=== PATIENT | female | born 1940 | race Caucasian/White ===

== ENCOUNTER 2024-02-27 10:26 | Outpatient (CLI) | payer OTHER, MEDICARE | END 2024-02-27 18:50 | disposition home or self-care (01) | LOC: SCT 10:26 | PROVIDERS: ATTEND Orthopaedic Surgery Sports Medicine | DX: M17.12 Unilateral primary osteoarthritis, left knee (principal) ==

== ENCOUNTER 2024-03-05 05:06 | Inpatient (IN) | payer OTHER ==
[2024-02-28 12:59] LABS: BASOPHILS # (AUTO) 0.1 K/uL (0.0-0.2); BASOPHILS % (AUTO) 0.7 % (0.0-2.0); EOSINOPHILS # (AUTO) 0.3 K/uL (0.0-0.4); EOSINOPHILS % (AUTO) 3.4 % (0.0-4.0); HEMATOCRIT 38.9 % (36-48); LYMPHOCYTES # (AUTO) 1.9 K/uL (1.0-5.5); LYMPHOCYTES % (AUTO) 20.8 % (20.5-51.5); MEAN CORPUSCULAR HEMOGLOBIN 30 pg (27-31); MEAN CORPUSCULAR HGB CONC 33 % (32-36); MEAN CORPUSCULAR VOLUME 89 fL (79.0-98.0); MONOCYTES # (AUTO) 0.8 K/uL (0.0-1.0); MONOCYTES % (AUTO) 8.4 % (1.7-9.3); NEUTROPHILS # (AUTO) 6.1 K/uL (1.8-7.7); NEUTROPHILS % (AUTO) 66.7 % (40.0-70.0); PLATELET COUNT (AUTO) 484 K/uL (130-430); RED BLOOD CELL COUNT(AUTO) 4.39 MIL/uL (4.2-6.2); RED CELL DISTRIBUTION WIDTH 15.7 % (9.0-15.0); WHITE BLOOD COUNT (AUTO) 9.2 K/uL (4.8-10.8)
[2024-02-28 13:15] LABS: PROTHROMBIN TIME 10.2 SECS (9.5-12.5)
[2024-02-28 13:16] LABS: ALANINE AMINOTRANSFERASE 20 U/L (12-78); ALBUMIN 3.4 g/dL (3.4-4.8); ANION GAP 11 (5-15); ASPARTATE AMINOTRANSFERASE 15 U/L (10-37); CALCIUM 8.9 mg/dL (8.4-11.0); CARBON DIOXIDE 26 mmol/L (23-29); CHLORIDE 106 mmol/L (98-107); CREATININE 0.98 mg/dL (0.55-1.30); GLUCOSE 90 mg/dL (74-106); POTASSIUM 3.6 mmol/L (3.5-5.1); SODIUM SERUM 143 mmol/L (136-145); TOTAL BILIRUBIN 0.3 mg/dL (0.0-1.0); TOTAL PROTEIN, SERUM 6.6 g/dL (6.4-8.3); UREA NITROGEN, BLOOD 28 mg/dL (8-21)
[2024-02-28 15:57] LABS: HEMOGLOBIN A1C 5.18 % (<5.7)
[~2024-03-05] VITALS: Ht 152.4 cm; Wt 66.8 kg
[2024-03-05] MEDS: ACETAMINOPHEN 325 MG TABLET ONE (05:25)
[2024-03-05] MEDS: GABAPENTIN 300 MG CAPSULE ONE (05:27)
[2024-03-05] MEDS: ACETAMINOPHEN 500 MG TABLET PO ONE (06:04)
[2024-03-05] MEDS: GABAPENTIN 300 MG CAPSULE PO ONE (06:04)
[2024-03-05] MEDS ORDERED: KETOROLAC TROMETHAMINE 30 MG VIAL ONE (07:00)
[2024-03-05] MEDS ORDERED: TRANEXAMIC ACID 1,000 MG/10 ML VIAL ONE (07:00)
[2024-03-05] MEDS ORDERED: ROCURONIUM BROMIDE 10 MG/ML (ZEMURON) ONE (07:00)
[2024-03-05] MEDS ORDERED: MIDAZOLAM HCL 2 MG/2 ML VIAL (VERSED) ONE (07:00)
[2024-03-05] MEDS ORDERED: DEXAMETHASONE SOD PHOSPHATE 4 MG/ML VIAL ONE (07:00)
[2024-03-05] MEDS ORDERED: PROPOFOL 200MG/ 20ML VIAL (DIPRIVAN) IV ONE (07:00)
[2024-03-05] MEDS ORDERED: BUPIVACAINE /PF 0.25% 30 ML VIAL INJ ONE (07:00)
[2024-03-05] MEDS ORDERED: NS IRRIG SOLN 1000 ML IR ONE (07:00)
[2024-03-05] MEDS ORDERED: WATER FOR IRRIGATION,STERILE 1,000 ML IRRIG.SOLN IR ONE (07:00)
[2024-03-05] MEDS ORDERED: LR 1,000 ML IV.SOLN IV ONE (07:00)
[2024-03-05] MEDS ORDERED: DESFLURANE 15 MIN GAS INH ONE (07:00)
[2024-03-05] MEDS ORDERED: VANCOMYCIN HCL 1000 MG/VIAL IV ONE (07:00)
[2024-03-05] MEDS ORDERED: SUGAMMADEX SODIUM 200 MG/2 ML VIAL IV ONE (07:00)
[2024-03-05] MEDS ORDERED: ONDANSETRON HCL 4 MG/2 ML VIAL ONE (07:00)
[2024-03-05] MEDS ORDERED: fentaNYL CITRATE/PF 100 MCG/2 ML AMP ONE (07:00)
[2024-03-05] MEDS: CEFAZOLIN SOD 2 GM in D5W 50 ML IV ONE (07:00)
[2024-03-05] MEDS ORDERED: ONDANSETRON HCL 4 MG/2 ML VIAL IVP PRN ×2 (08:00→14:00)
[2024-03-05] MEDS ORDERED: HYDROmorphone 1 MG/ML INJ. CARTRIDGE IVP PRN ×4 (08:00→14:00)
[2024-03-05] MEDS ORDERED: hydrALAZINE HCL 20 MG/ML VIAL IVP PRN (08:00)
[2024-03-05] MEDS ORDERED: LABETALOL 100 MG/ 20ML VIAL IVP PRN (08:00)
[2024-03-05] MEDS ORDERED: MEPERIDINE HCL/PF 25 MG/ML DISP.SYRIN IVP PRN (08:00)
[2024-03-05] MEDS: HYDROmorphone 1 MG/ML INJ. CARTRIDGE IVP PRN (09:40)
[2024-03-05] MEDS: HYDROmorphone 1 MG/ML INJ. CARTRIDGE ONE (09:42)
[2024-03-05] MEDS ORDERED: LORATADINE 10 MG TABLET PO PRN (11:00)
[2024-03-05] MEDS ORDERED: BISACODYL 10 MG/SUPPOSITORY RC PRN (11:00)
[2024-03-05] MEDS ORDERED: LACTULOSE 20 GM/30 ML UDC PO PRN (11:00)
[2024-03-05] MEDS ORDERED: DIPHENHYDRAMINE HCL 25 MG CAPSULE PO PRN (11:00)
[2024-03-05] MEDS ORDERED: MULT-1089 PO (11:42)
[2024-03-05] MEDS ORDERED: PHYT100T PO (11:42)
[2024-03-05] MEDS ORDERED: LORA10TA64 PO (11:42)
[2024-03-05] MEDS ORDERED: CALC-823 PO (11:42)
[2024-03-05] MEDS ORDERED: FERR236T3 PO (11:42)
[2024-03-05] MEDS ORDERED: IBUP-2101 (11:42)
[2024-03-05] MEDS ORDERED: ESTR1.25 PO (11:42)
[2024-03-05] MEDS ORDERED: VITA-285 PO (11:42)
[2024-03-05] MEDS ORDERED: ACET-2634 PO (11:42)
[2024-03-05] MEDS ORDERED: LEVO125T PO (11:42)
[2024-03-05] MEDS ORDERED: ESOM2.5S PO (11:45)
[2024-03-05 13:05] VITALS: BP_SYST 115; PULSE 100; RESP 16; TEMP 97.5; O2SAT 99
[2024-03-05] MEDS: LR 1,000 ML IV SCH (13:27)
[2024-03-05] MEDS: KETOROLAC TROMETHAMINE 10 MG TABLET (TORADOL) PO SCH (13:37)
[2024-03-05] MEDS: ACETAMINOPHEN 500 MG TABLET PO SCH (13:37)
[2024-03-05] MEDS ORDERED: traMADol HCL HCL 50 MG TABLET (ULTRAM) PO PRN (14:00)
[2024-03-05] MEDS ORDERED: METOCLOPRAMIDE HCL 10 MG/2 ML VIAL IVP PRN (14:00)
[2024-03-05] MEDS ORDERED: oxyCODONE HCL 5 MG TABLET PO PRN (14:00)
[2024-03-05] MEDS: ceFAZolin SODIUM 2 GM in D5W 50 ML IV SCH (15:20)
[2024-03-05 16:53] VITALS: BP_SYST 132; PULSE 96; RESP 18; TEMP 98.6; O2SAT 97
[2024-03-05] MEDS: IBUPROFEN 800 MG TABLET PO PRN (16:55)
[2024-03-05 20:00] VITALS: BP_SYST 125; PULSE 110; RESP 18; TEMP 98.8; O2SAT 92
[2024-03-05] MEDS: SENNOSIDES/DOCUSATE SODIUM 1 TAB TABLET(SENOKOT-S) PO SCH (21:00)
[2024-03-06 00:39] VITALS: BP_SYST 125; PULSE 101; RESP 18; TEMP 97; O2SAT 93
[2024-03-06] MEDS: KETOROLAC TROMETHAMINE 15 MG VIAL IVP SCH (02:28)
[2024-03-06 08:00] VITALS: BP_SYST 107; PULSE 100; RESP 16; TEMP 97.3; O2SAT 96
[2024-03-06] MEDS: ASPIRIN 81 MG TAB.CHEW PO SCH (10:31)
[2024-03-06 10:38] VITALS: BP_SYST 107; PULSE 100; RESP 15; TEMP 97.3; O2SAT 96
[2024-03-06 12:50] VITALS: BP_SYST 102; PULSE 100; RESP 16; TEMP 97.8; O2SAT 97
[2024-03-06 17:17] VITALS: BP_SYST 106; PULSE 95; RESP 14; TEMP 98.6; O2SAT 95
[2024-03-06 20:00] VITALS: BP_SYST 113; PULSE 97; RESP 18; TEMP 98.2; O2SAT 94
[2024-03-07 00:29] VITALS: BP_SYST 116; PULSE 103; RESP 19; TEMP 97.6; O2SAT 100
[2024-03-07 08:00] VITALS: BP_SYST 122; PULSE 98; RESP 18; TEMP 97.9; O2SAT 95
[2024-03-07 08:15] VITALS: O2SAT 98
[2024-03-07 12:04] VITALS: BP_SYST 119; PULSE 100; RESP 19; TEMP 97.7; O2SAT 97
[2024-03-07 16:05] VITALS: BP_SYST 120; PULSE 99; RESP 18; TEMP 97.8; O2SAT 96
[2024-03-07 19:20] VITALS: O2SAT 97
[2024-03-08] VITALS: BP_SYST 128; PULSE 92; RESP 16; TEMP 97; O2SAT 96
[2024-03-08 07:45] VITALS: O2SAT 97
[2024-03-08 08:59] VITALS: BP_SYST 123; PULSE 100; RESP 18; TEMP 97.7; O2SAT 97
[2024-03-08] MEDS: IBUPROFEN 800 MG TABLET ONE (12:27)
[2024-03-08 12:42] VITALS: BP_SYST 123; PULSE 100; RESP 18; TEMP 97.7; O2SAT 19
[2024-03-08 12:46] VITALS: BP_SYST 125; PULSE 96; RESP 17; TEMP 97.4; O2SAT 97
== END 2024-03-08 13:50 | DRG 470 ==
LOC: SDS 05:06 → EDSTATUS 08:30 → SDS 11:21 → SMU 11:21 → UNDOFXSDCSVC 03-06 19:41 → SDS 03-08 11:22 → SMU 03-08 11:22 → SDS 03-08 11:27 → SMU 03-08 11:27
PROVIDERS: ADMIT Orthopaedic Surgery Sports Medicine; ATTEND Orthopaedic Surgery Sports Medicine
PROC: 8E0Y0CZ Robotic Assisted Procedure of Lower Extremity, Open Approach (ICD-10-PCS; 2024-03-05)
PROC: 0SRD0J9 Replacement of Left Knee Joint with Synthetic Substitute, Cemented, Open Approach (ICD-10-PCS; principal; 2024-03-05 07:09)
DX: M17.12 Unilateral primary osteoarthritis, left knee (principal)
CPT/HCPCS: 36415; 71046; 73560; 80053; 83037; 85025; 85610; 85730; 87081; 88305; 88311; 96379; 97110-GP; 97116-GP; 97530-GP; C1713; C1776; J0690; J1100; J1171; J1885; J2250; J2405; J2704; J3010; J3370; J3490; J7060; J7120